=== PATIENT | male | born 1980 | race Caucasian/White ===

== ENCOUNTER 2017-01-21 03:13 | Emergency (ER) | payer MEDICAID, OTHER ==
[~2017-01-21 03:13] MED LIST: ENZYCAP PO; LORTA5 PO; OMEP20TA PO; OXYBXL10 PO; PERC5TAB12 PO; PROM25TA5 PO; ZOFR4TAB3 SL
[2017-01-21 03:20] VITALS: BP 137/73; PULSE 99; RESP 18; TEMP 98.8; O2SAT 98
[2017-01-21] MEDS ORDERED: SODIUM CHLOR 0.9% 1000 ML INJ 1,000 ML IV SCH (03:23)
--- NOTE | 2017-01-21 03:28 | PD ---
HPI Chief Complaint: Abdominal Pain Time Seen by Provider: 03:23 Travel History International Travel<30 days: No Contact w/Intl Traveler<30days: No Traveled to known affect area: No History of Present Illness HPI The patient is a 36-year-old male who presents emergency department for abdominal pain. The patient states he developed epigastric abdominal pain earlier today after eating pork for dinner. The pain is located in epigastrium , nonradiating, sharp and burning, and associated with nausea and vomiting. The patient has a history of similar pain in the past secondary to pancreatitis , states he has a history of chronic pancreatitis with previous endoscopy, ERCP , stent placement. The patient denies any history of gallstones, biliary colic , or chronic alcohol abuse. 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 He has not had a problem and over 1 year. He denies any alcohol ingestion earlier tonight. He denies any lower abdominal pain, dysuria, frequency, or urgency. Symptoms are moderate without any alleviating or exacerbating factors. PFSH Past Medical History Arthritis: No Asthma: No Autoimmune Disease: No Blood Disorders: No Anxiety: No Depression: No Heart Rhythm Problems: No Cancer: No Cardiovascular Problems: No High Cholesterol: No Chemotherapy: No Chest Pain: No Congestive Heart Failure: No COPD: No Cerebrovascular Accident: No Diabetes: No Diminished Hearing: No Endocrine: Yes (PANCREATIC CYST) Gastrointestinal Disorders: Yes (CONSTANT NAUSEA) GERD: No Glaucoma: No Genitourinary: No Hepatitis: No Hiatal Hernia: No Immune Disorder: No Kidney Stones: No Musculoskeletal: No Neurologic: No Psychiatric: No Reproductive: No Respiratory: No Immunizations Current: Yes Migraines: No Pancreatitis: Yes Radiation Therapy: No Renal Failure: No Seizures: No Sickle Cell Disease: No Sleep Apnea: No Thyroid Disease: No Ulcer: No Tetanus Vaccination: < 5 Years Influenza Vaccination: No PNEUMOCCOCAL Vaccine (Year): 2 Past Surgical History Abdominal Surgery: Yes (PANCREATIC DUCT INCISION - ERCP X3/ STENT REMOVED FROM PANCREAS) AICD: No Arteriovenous Shunt: No Cardiac Surgery: No Ear Surgery: No Endocrine Surgery: No Eye Surgery: No Genitourinary Surgery: No Gynecologic Surgery: No Insulin Pump: No Joint Replacement: No Neurologic Surgery: No Oral Surgery: No Pacemaker: No Thoracic Surgery: No Other Surgery: Yes Social History Alcohol Use: No Tobacco Use: Yes (1/2 PPD) 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 Compazine (Verified Allergy, Severe, RESTLESSNESS, 01/21/17) Tramadol (Verified Allergy, Unknown, Cramping, 01/21/17) Toradol (Verified Adverse Reaction, Severe, JITTERS, 01/21/17) Reported Meds & Prescriptions Reported Meds & Active Scripts Active No Active Prescriptions or Reported Medications Review of Systems General / Constitutional: No: Fever Cardiovascular: No: Chest Pain or Discomfort Respiratory: No: Shortness of Breath Gastrointestinal: Positive: Nausea, Vomiting, Abdominal Pain, No: Diarrhea, Constipation, Changes in Bowel Habits Genitourinary: No: Dysuria Skin: Positive Rash (patient has bug bites on the upper extremities bilateral secondary to working in the yard per his report) Physical Exam Narrative GENERAL: Awake, alert, nontoxic-appearing 36-year-old male appears his stated age and appears in mild discomfort. SKIN: Focused skin assessment warm/dry. Patient has multiple circular slightly elevated lesions on the arms bilateral with mild excoriation. HEAD: Atraumatic. Normocephalic. EYES: Pupils equal and round. No scleral icterus. No injection or drainage. ENT: No nasal bleeding or discharge. Mucous membranes pink and moist. NECK: Trachea midline. No JVD. CARDIOVASCULAR: Regular rate and rhythm. No murmur appreciated. RESPIRATORY: No accessory muscle use. Clear to auscultation. Breath sounds equal bilaterally. GASTROINTESTINAL: Abdomen soft, tender in the epigastrium. Negative Rodas's. Negative McBurney's. MUSCULOSKELETAL: No obvious deformities. No clubbing. No cyanosis. No edema. NEUROLOGICAL: Awake and alert. No obvious cranial nerve deficits. Motor grossly within normal limits. Normal speech. PSYCHIATRIC: Appropriate mood and affect; insight and judgment normal. Data Data Last Documented VS Vital Signs Date Time Temp Pulse Resp B/P Pulse Ox O2 Delivery O2 Flow Rate FiO2 01/21/17 03:20 98.8 99 18 137/73 98 Orders Complete Blood Count With Diff (01/21/17 03:23) Comprehensive Metabolic Panel (01/21/17 03:23) Lipase (01/21/17 03:23) Iv Access Insert/Monitor (01/21/17 03:23) Ecg Monitoring (01/21/17 03:23) Oximetry (01/21/17 03:23) Morphine Inj (Morphine Inj) (01/21/17 03:30) Ondansetron Inj (Zofran Inj) (01/21/17 03:30) Sodium Chlor 0.9% 1000 Ml Inj (Ns 1000 M (01/21/17 03:23) Sodium Chloride 0.9% Flush (Ns Flush) (01/21/17 03:30) Famotidine Inj (Pepcid Inj) (01/21/17 03:30) Labs Laboratory Tests Test 01/21/17 03:30 White Blood Count 10.7 TH/MM3 Red Blood Count 4.16 MIL/MM3 Hemoglobin 12.4 GM/DL Hematocrit 35.5 % Mean Corpuscular Volume 85.3 FL Mean Corpuscular Hemoglobin 29.8 PG Mean Corpuscular Hemoglobin 34.9 % Concent Red Cell Distribution Width 12.5 % Platelet Count 248 TH/MM3 Mean Platelet Volume 8.5 FL Neutrophils (%) (Auto) 88.4 % Lymphocytes (%) (Auto) 5.2 % Monocytes (%) (Auto) 4.8 % Eosinophils (%) (Auto) 1.5 % Basophils (%) (Auto) 0.1 % Neutrophils # (Auto) 9.5 TH/MM3 Lymphocytes # (Auto) 0.6 TH/MM3 Monocytes # (Auto) 0.5 TH/MM3 Eosinophils # (Auto) 0.2 TH/MM3 Basophils # (Auto) 0.0 TH/MM3 CBC Comment DIFF FINAL Differential Comment Sodium Level 139 MEQ/L Potassium Level 3.7 MEQ/L Chloride Level 104 MEQ/L Carbon Dioxide Level 27.4 MEQ/L Anion Gap 8 MEQ/L Blood Urea Nitrogen 8 MG/DL Creatinine 1.13 MG/DL Estimat Glomerular Filtration 74 ML/MIN Rate Random Glucose 120 MG/DL Calcium Level 8.9 MG/DL Total Bilirubin 0.4 MG/DL Aspartate Amino Transf 26 U/L (AST/SGOT) Alanine Aminotransferase 33 U/L (ALT/SGPT) Alkaline Phosphatase 115 U/L Total Protein 7.0 GM/DL Albumin 3.5 GM/DL Lipase 160 U/L MDM Medical Decision Making Medical Screen Exam Complete: Yes Emergency Medical Condition: Yes Medical Record Reviewed: Yes Interpretation(s) Laboratory Tests Test 01/21/17 03:30 White Blood Count 10.7 TH/MM3 Red Blood Count 4.16 MIL/MM3 Hemoglobin 12.4 GM/DL Hematocrit 35.5 % Mean Corpuscular Volume 85.3 FL Mean Corpuscular Hemoglobin 29.8 PG Mean Corpuscular Hemoglobin 34.9 % Concent Red Cell Distribution Width 12.5 % Platelet Count 248 TH/MM3 Mean Platelet Volume 8.5 FL Neutrophils (%) (Auto) 88.4 % Lymphocytes (%) (Auto) 5.2 % Monocytes (%) (Auto) 4.8 % Eosinophils (%) (Auto) 1.5 % Basophils (%) (Auto) 0.1 % Neutrophils # (Auto) 9.5 TH/MM3 Lymphocytes # (Auto) 0.6 TH/MM3 Monocytes # (Auto) 0.5 TH/MM3 Eosinophils # (Auto) 0.2 TH/MM3 Basophils # (Auto) 0.0 TH/MM3 CBC Comment DIFF FINAL Differential Comment Sodium Level 139 MEQ/L Potassium Level 3.7 MEQ/L Chloride Level 104 MEQ/L Carbon Dioxide Level 27.4 MEQ/L Anion Gap 8 MEQ/L Blood Urea Nitrogen 8 MG/DL Creatinine 1.13 MG/DL Estimat Glomerular Filtration 74 ML/MIN Rate Random Glucose 120 MG/DL Calcium Level 8.9 MG/DL Total Bilirubin 0.4 MG/DL Aspartate Amino Transf 26 U/L (AST/SGOT) Alanine Aminotransferase 33 U/L (ALT/SGPT) Alkaline Phosphatase 115 U/L Total Protein 7.0 GM/DL Albumin 3.5 GM/DL Lipase 160 U/L Differential Diagnosis Differential diagnoses includes pancreatitis, gastritis, peptic ulcer disease, biliary colic, choledocholithiasis, nephrolithiasis, chronic pain. Narrative Course IV was established, labs are drawn and sent, and the patient was placed on cardiac telemetry monitoring and continuous pulse oximetry monitoring. The patient received morphine, Zofran, and IV fluids. Lipase level was sent to lab. The patient's labs are unremarkable. Lipase is normal. LFTs are normal. White count is normal. The patient is afebrile. The patient was reevaluated at 4:40 AM, his pain had improved it was down to 4/10. Therefore, patient was administered another dose of pain medication. There is no evidence of obstruction of the biliary duct, lipase and LFTs are unremarkable, he will be discharged home on Zofran and pain medication, is advised to follow-up with his primary physician and/or dispenser operator. Diagnosis Primary Impression: Abdominal pain Qualified Code: R10.13 - Epigastric pain Additional Impression: Chronic pancreatitis Qualified Code: K86.1 - Chronic pancreatitis, unspecified pancreatitis type Patient Instructions: General Instructions Additional Instructions: Medications as directed. Follow-up with your primary physician and/or dispenser operator. Return if symptoms worsen or progress. Med/Other Pt SpecificInfo: Prescription(s) given Scripts Hydrocodone-Acetaminophen ([place])5-325 mg Tab1 Tab PO Q6H PRN (PAIN) #15 TAB Ref 0 Prov:Diego Rodgers MD 01/21/17 Ondansetron Odt (Zofran Odt)4 Mg Tab4 Mg SL Q6HR PRN (Nausea/Vomiting) #7 TAB Ref 0 Prov:Diego Rodgers MD 01/21/17 Disposition: DISCHARGE HOME Condition: Stable Diego Rodgers MD Jan 21, 2017 03:28
[2017-01-21] MEDS ORDERED: ONDANSETRON HCL 4 MG/2 ML VIAL IVP ONE (03:30)
[2017-01-21] MEDS ORDERED: FAMOTIDINE 20 MG/2 ML VIAL IV PUSH ONE (03:30)
[2017-01-21] MEDS ORDERED: SODIUM CHLORIDE 0.9% FLUSH 10 ML FLUSH IV FLUSH PRN (03:30)
[2017-01-21] MEDS ORDERED: MORPHINE SULFATE 4 MG/ML INJ IV PUSH ONE ×2 (03:30→04:45)
[2017-01-21 03:42] LABS: AUTOMATED NEUTROPHIL # 9.5 TH/MM3 (1.8-7.7); BASOPHIL % 0.1 % (0.0-2.0); EOSINOPHIL # 0.2 TH/MM3 (0-0.4); EOSINOPHIL % 1.5 % (0.0-4.0); HEMATOCRIT 35.5 % (39.0-51.0); HEMO FLAGS DIFF FINAL; LYMPH % 5.2 % (9.0-44.0); LYMPHOCYTE # 0.6 TH/MM3 (1.0-4.8); MEAN CELL VOLUME 85.3 FL (80.0-100.0); MEAN CORPUSCULAR HEMOGLOBIN 29.8 PG (27.0-34.0); MEAN CORPUSCULAR HGB CONC 34.9 % (32.0-36.0); MONO % 4.8 % (0.0-8.0); NEUT % 88.4 % (16.0-70.0); PLATELET COUNT 248 TH/MM3 (150-450); RED BLOOD COUNT 4.16 MIL/MM3 (4.50-5.90); RED CELL DISTRIBUTION WIDTH 12.5 % (11.6-17.2); WHITE BLOOD COUNT 10.7 TH/MM3 (4.0-11.0)
[2017-01-21 04:07] LABS: ALKALINE PHOSPHATASE 115 U/L (45-117); TOTAL BILIRUBIN ADULT 0.4 MG/DL (0.2-1.0)
[2017-01-21 04:40] LABS: ALT (GPT) 33 U/L (12-78); ANION GAP 8 MEQ/L (5-15); AST (GOT) 26 U/L (15-37); BICARBONATE 27.4 MEQ/L (21.0-32.0); BLOOD UREA NITROGEN 8 MG/DL (7-18); CHLORIDE 104 MEQ/L (98-107); GLOMERULAR FILTRATION RATE 74 ML/MIN (>89); POTASSIUM 3.7 MEQ/L (3.5-5.1); SODIUM (NA) 139 MEQ/L (136-145)
[2017-01-21] MEDS ORDERED: NORC5TAB PO (04:45)
[2017-01-21] MEDS ORDERED: ZOFR4TAB3 SL (04:45)
== END 2017-01-21 06:25 | disposition home or self-care (01) ==
LOC: NEPE 03:13
DX: R10.13 Epigastric pain (principal); K86.1 Other chronic pancreatitis
CPT/HCPCS: 80053; 83690; 85025; 96374; 96375; 96376; 99284; J2270; J2405; J7030

== ENCOUNTER 2017-03-25 14:05 | Emergency (ER) | payer MEDICAID ==
[~2017-03-25 14:05] MED LIST changes: -ENZYCAP PO; -LORTA5 PO; +NORC5TAB PO; -OMEP20TA PO; -OXYBXL10 PO; -PERC5TAB12 PO; -PROM25TA5 PO
[2017-03-25 14:08] VITALS: BP 161/59; PULSE 84; RESP 16; TEMP 98.2; O2SAT 98
--- NOTE | 2017-03-25 14:21 | PD ---
Physical Exam Date Seen by Provider: Mar 25, 2017 Time Seen by Provider: 14:19 Narrative Pt presents with c/o groin pain and back pain. Per patients girlfriend he has a kidney tumor. Pt states the pain has been ongoing for 1 week. Pt c/o dysuria. VSS awaiting bed placement. Pt appears drowsy. Data Data Last Documented VS Vital Signs Date Time Temp Pulse Resp B/P (MAP) Pulse Ox O2 Delivery O2 Flow Rate FiO2 03/25/17 14:08 98.2 84 16 161/59 (93) 98 MDM Supervised Visit with NATHALIA: Taina Correia Mar 25, 2017 14:21
--- NOTE | 2017-03-25 14:36 | PD ---
HPI . here for surgery Chief Complaint: Complaint Time Seen by Provider: 14:25 Travel History International Travel<30 days: No Contact w/Intl Traveler<30days: No Traveled to known affect area: No History of Present Illness HPI 36 yr old male with history of kidney mass here. He is on the exam table crying. His significant other is doing all the talking. She tells me he is here wanting surgery on his kidney mass that was dx 3 years ago. She said he had a MRI done in the hospital at another facility and was told he would need outpatient f/u. He was hoping to have surgery there and was told his case was not urgent. He is here wanting surgery. She tells me that he saw his PCP and was not given a referral to urology. PFSH Past Medical History Arthritis: No Asthma: No Autoimmune Disease: No Blood Disorders: No Anxiety: No Depression: No Heart Rhythm Problems: No Cancer: No Cardiovascular Problems: No High Cholesterol: No Chemotherapy: No Chest Pain: No Congestive Heart Failure: No COPD: No Cerebrovascular Accident: No Diabetes: No Diminished Hearing: No Endocrine: Yes (PANCREATIC CYST) Gastrointestinal Disorders: Yes (CONSTANT NAUSEA) GERD: No Glaucoma: No Genitourinary: No Hepatitis: No Hiatal Hernia: No Immune Disorder: No Kidney Stones: No Musculoskeletal: No Neurologic: No Psychiatric: No Reproductive: No Respiratory: No Immunizations Current: Yes Migraines: No Pancreatitis: Yes Radiation Therapy: No Renal Failure: No Seizures: No Sickle Cell Disease: No Sleep Apnea: No Thyroid Disease: No Ulcer: No PNEUMOCCOCAL Vaccine (Year): 2 Past Surgical History Abdominal Surgery: Yes (PANCREATIC DUCT INCISION - ERCP X3/ STENT REMOVED FROM PANCREAS) AICD: No Arteriovenous Shunt: No Cardiac Surgery: No Ear Surgery: No Endocrine Surgery: No Eye Surgery: No Genitourinary Surgery: No Gynecologic Surgery: No Insulin Pump: No Joint Replacement: No Neurologic Surgery: No Oral Surgery: No Pacemaker: No Thoracic Surgery: No Other Surgery: Yes Social History Alcohol Use: No Tobacco Use: Yes (1/2 PPD) Substance Use: No (HX DRUG ABUSE) Allergies-Medications (Allergen,Severity, Reaction): Coded Allergies: codeine (Unverified Allergy, Severe, UPSET STOMACH, RASH, 03/12/17) 11/30/04: PT TAKES LORTAB AT HOME W/O ADVERSE EFFECT, PT STS CAN NOT TAKE STRAIGHT CODEINE. dicyclomine (Unverified Allergy, Severe, HIVES, 03/12/17) prochlorperazine (Unverified Allergy, Severe, RESTLESSNESS, 03/12/17) tramadol (Unverified Allergy, Unknown, Cramping, 03/12/17) ketorolac (Unverified Adverse Reaction, Severe, JITTERS, 03/12/17) Reported Meds & Prescriptions Reported Meds & Active Scripts Active [place] (Hydrocodone-Acetaminophen) 5-325 mg Tab 1 Tab PO Q6H PRN Zofran Odt (Ondansetron Odt) 4 Mg Tab 4 Mg SL Q6HR PRN Review of Systems General / Constitutional: No: Fever Eyes: No: Visual changes HENT: No: Headaches Cardiovascular: No: Chest Pain or Discomfort Respiratory: No: Shortness of Breath Gastrointestinal: No: Abdominal Pain Genitourinary: No: Dysuria Musculoskeletal: Positive: Pain (back pain ) Skin: No Rash Neurologic: No: Weakness Psychiatric: No: Depression Endocrine: No: Polydipsia Hematologic/Lymphatic: No: Easy Bruising Physical Exam Narrative patient did not allow exam; he left the exam room Data Data Last Documented VS Vital Signs Date Time Temp Pulse Resp B/P (MAP) Pulse Ox O2 Delivery O2 Flow Rate FiO2 03/25/17 14:08 98.2 84 16 161/59 (93) 98 MDM Medical Decision Making Medical Screen Exam Complete: Yes Emergency Medical Condition: Yes Medical Record Reviewed: Yes Differential Diagnosis kidney mass, UTI, nephrolithiasis Narrative Course 36 yr old male here with multiple complaints. He has not spoken a word to me. His significant other has given me a list with a multitude of complaints. I discussed with them that we do not operate in the ER and will provide a workup and go from there. Patient got up and walked out of the exam room. Diagnosis Primary Impression: Left against medical advice Patient Instructions: General Instructions Disposition: 07 AGAINST MEDICAL ADVICE Condition: Stable Nemo Hyatt Mar 25, 2017 14:35
[2017-04-10] MEDS ORDERED: LEVO500T8 PO (14:01)
[2017-04-10] MEDS ORDERED: HYDR-3580 PO (14:03)
== END 2017-03-25 14:32 | disposition left against medical advice (07) ==
LOC: NEPD 14:05
DX: N28.89 Other specified disorders of kidney and ureter (principal)
CPT/HCPCS: 99281

== ENCOUNTER 2017-04-05 04:34 | Emergency (ER) | payer MEDICAID ==
[2017-04-05 04:37] VITALS: BP 165/99; PULSE 105; RESP 16; TEMP 99; O2SAT 98
--- NOTE | 2017-04-05 05:05 | PD ---
HPI Chief Complaint: Pain: Acute or Chronic Time Seen by Provider: 05:05 Travel History International Travel<30 days: No Contact w/Intl Traveler<30days: No Traveled to known affect area: No History of Present Illness HPI 36-year-old male came to the emergency room with history of abdominal pain. Patient has been in this emergency room and other ERs multiple times as per his own admission for abdominal pain. He was in [facility] emergency room less than 2 weeks ago for abdominal pain and at that time a CT scan was done which showed a mass in his kidney. Patient says about 2 years ago he was told about a smaller mass in his kidney which seems like it might have grown in size. He was out of town for past 22 months. He has just returned. His primary care has arranged for a follow-up with a urologist that he is supposed to see. He was slightly tachycardic upon arrival. No history of vomiting or diarrhea. PFSH Past Medical History Narrative Medical List of his past medical, surgical, social and family history as reviewed from the nursing note. Arthritis: No Asthma: No Autoimmune Disease: No Blood Disorders: No Anxiety: No Depression: No Heart Rhythm Problems: No Cancer: No Cardiovascular Problems: No High Cholesterol: No Chemotherapy: No Chest Pain: No Congestive Heart Failure: No COPD: No Cerebrovascular Accident: No Diabetes: No Diminished Hearing: No Endocrine: Yes (PANCREATIC CYST) Gastrointestinal Disorders: Yes ( NAUSEA) GERD: No Glaucoma: No Genitourinary: No Hepatitis: No Hiatal Hernia: No Immune Disorder: No Kidney Stones: No Musculoskeletal: No Neurologic: No Psychiatric: No Reproductive: No Respiratory: No Immunizations Current: Yes Migraines: No Pancreatitis: Yes Radiation Therapy: No Renal Failure: No Seizures: No Sickle Cell Disease: No Sleep Apnea: No Thyroid Disease: No Ulcer: No PNEUMOCCOCAL Vaccine (Year): 2 Past Surgical History Abdominal Surgery: Yes (PANCREATIC DUCT INCISION - ERCP X3/ STENT REMOVED FROM PANCREAS) AICD: No Arteriovenous Shunt: No Cardiac Surgery: No Ear Surgery: No Endocrine Surgery: No Eye Surgery: No Genitourinary Surgery: No Gynecologic Surgery: No Insulin Pump: No Joint Replacement: No Neurologic Surgery: No Oral Surgery: No Pacemaker: No Thoracic Surgery: No Other Surgery: Yes Social History Alcohol Use: No Tobacco Use: Yes (1/2 PPD) Substance Use: No (HX DRUG ABUSE) Allergies-Medications (Allergen,Severity, Reaction): Coded Allergies: codeine (Verified Allergy, Severe, UPSET STOMACH, RASH, 04/10/17) 11/30/04: PT TAKES LORTAB AT HOME W/O ADVERSE EFFECT, PT STS CAN NOT TAKE STRAIGHT CODEINE. dicyclomine (Verified Allergy, Severe, HIVES, 04/10/17) prochlorperazine (Verified Allergy, Severe, RESTLESSNESS, 04/10/17) tramadol (Verified Allergy, Unknown, Cramping, 04/10/17) ketorolac (Verified Adverse Reaction, Severe, JITTERS, 04/10/17) Comments List of his allergies reviewed from the nursing note. Reported Meds & Prescriptions Reported Meds & Active Scripts Active Hydrocodone-Acetaminophen 7.5-325 mg Tab 1 Tab PO Q6H PRN Levofloxacin 500 Mg Tablet 500 Mg PO DAILY Narrative Medication List of his home medications reviewed from the nursing note. Review of Systems Except as stated in HPI: all other systems reviewed are Neg Physical Exam Narrative GENERAL: Awake, alert, no obvious distress SKIN: Focused skin assessment warm/dry. HEAD: Atraumatic. Normocephalic. EYES: Pupils equal and round. No scleral icterus. No injection or drainage. ENT: No nasal bleeding or discharge. Mucous membranes pink and moist. NECK: Trachea midline. No JVD. CARDIOVASCULAR: Regular rate and rhythm. No murmur appreciated. RESPIRATORY: No accessory muscle use. Clear to auscultation. Breath sounds equal bilaterally. GASTROINTESTINAL: Abdomen soft, non-tender, nondistended. Hepatic and splenic margins not palpable. MUSCULOSKELETAL: No obvious deformities. No clubbing. No cyanosis. No edema. NEUROLOGICAL: Awake and alert. No obvious cranial nerve deficits. Motor grossly within normal limits. Normal speech. PSYCHIATRIC: Appropriate mood and affect; insight and judgment normal. Data Data Last Documented VS Orders Orders Complete Blood Count With Diff (04/05/17 05:23) Comprehensive Metabolic Panel (04/05/17 05:23) Lactic Acid (04/05/17 05:23) Iv Access Insert/Monitor (04/05/17 05:23) Ecg Monitoring (04/05/17 05:23) Oximetry (04/05/17 05:23) Sodium Chloride 0.9% Flush (Ns Flush) (04/05/17 05:30) Ondansetron Inj (Zofran Inj) (04/05/17 05:30) Acetamin-Hydrocod 325-5 Mg ([place] 5-325 (04/05/17 05:30) Labs Laboratory Tests Test 04/05/17 05:30 White Blood Count 13.9 TH/MM3 Red Blood Count 4.86 MIL/MM3 Hemoglobin 13.2 GM/DL Hematocrit 40.5 % Mean Corpuscular Volume 83.4 FL Mean Corpuscular Hemoglobin 27.2 PG Mean Corpuscular Hemoglobin Concent 32.7 % Red Cell Distribution Width 13.0 % Platelet Count 274 TH/MM3 Mean Platelet Volume 7.3 FL Neutrophils (%) (Auto) 82.3 % Lymphocytes (%) (Auto) 9.6 % Monocytes (%) (Auto) 5.7 % Eosinophils (%) (Auto) 2.0 % Basophils (%) (Auto) 0.4 % Neutrophils # (Auto) 11.4 TH/MM3 Lymphocytes # (Auto) 1.3 TH/MM3 Monocytes # (Auto) 0.8 TH/MM3 Eosinophils # (Auto) 0.3 TH/MM3 Basophils # (Auto) 0.1 TH/MM3 CBC Comment DIFF FINAL Differential Comment Blood Urea Nitrogen 15 MG/DL Creatinine 1.18 MG/DL Random Glucose 129 MG/DL Total Protein 7.5 GM/DL Albumin 3.7 GM/DL Calcium Level 8.9 MG/DL Alkaline Phosphatase 118 U/L Aspartate Amino Transf (AST/SGOT) 35 U/L Alanine Aminotransferase (ALT/SGPT) 69 U/L Total Bilirubin 0.1 MG/DL Sodium Level 136 MEQ/L Potassium Level 3.8 MEQ/L Chloride Level 102 MEQ/L Carbon Dioxide Level 28.2 MEQ/L Anion Gap 6 MEQ/L Estimat Glomerular Filtration Rate 71 ML/MIN Lactic Acid Level 1.9 mmol/L MDM Medical Decision Making Medical Screen Exam Complete: Yes Emergency Medical Condition: Yes Medical Record Reviewed: Yes Differential Diagnosis Acute on chronic pancreatitis, chronic abdominal pain, pain med seeking Narrative Course 6:15 AM blood test results of back and within acceptable limits. Patient had a CAT scan for the risk of radiation exposure. Patient will be discharged home. Procedures EKG Prior to Arrival: No Diagnosis Primary Impression: Chronic abdominal pain Referrals: Primary Care Physician Additional Instructions: Follow-up with your primary care and your urologist. Disposition: 01 DISCHARGE HOME Condition: Stable Gerber Meza MD Apr 05, 2017 05:05
[2017-04-05] MEDS ORDERED: ONDANSETRON HCL 4 MG/2 ML VIAL IV PUSH ONE (05:30)
[2017-04-05] MEDS ORDERED: ACETAMINOPHEN/HYDROcodone 325 MG/5 MG TAB PO ONE (05:30)
[2017-04-05] MEDS ORDERED: SODIUM CHLORIDE 0.9% FLUSH 10 ML FLUSH IV FLUSH PRN (05:30)
[2017-04-05 05:46] LABS: AUTOMATED NEUTROPHIL # 11.4 TH/MM3 (1.8-7.7); BASOPHIL # 0.1 TH/MM3 (0-0.2); BASOPHIL % 0.4 % (0.0-2.0); EOSINOPHIL # 0.3 TH/MM3 (0-0.4); HEMATOCRIT 40.5 % (39.0-51.0); HEMO FLAGS DIFF FINAL; LYMPH % 9.6 % (9.0-44.0); LYMPHOCYTE # 1.3 TH/MM3 (1.0-4.8); MEAN CELL VOLUME 83.4 FL (80.0-100.0); MEAN CORPUSCULAR HEMOGLOBIN 27.2 PG (27.0-34.0); MEAN CORPUSCULAR HGB CONC 32.7 % (32.0-36.0); MONO % 5.7 % (0.0-8.0); NEUT % 82.3 % (16.0-70.0); PLATELET COUNT 274 TH/MM3 (150-450); RED BLOOD COUNT 4.86 MIL/MM3 (4.50-5.90); WHITE BLOOD COUNT 13.9 TH/MM3 (4.0-11.0)
[2017-04-05 06:09] LABS: ALKALINE PHOSPHATASE 118 U/L (45-117); TOTAL BILIRUBIN ADULT 0.1 MG/DL (0.2-1.0)
[2017-04-05 06:13] LABS: ALT (GPT) 69 U/L (12-78); ANION GAP 6 MEQ/L (5-15); AST (GOT) 35 U/L (15-37); BICARBONATE 28.2 MEQ/L (21.0-32.0); BLOOD UREA NITROGEN 15 MG/DL (7-18); CHLORIDE 102 MEQ/L (98-107); GLOMERULAR FILTRATION RATE 71 ML/MIN (>89); POTASSIUM 3.8 MEQ/L (3.5-5.1); SODIUM (NA) 136 MEQ/L (136-145)
[2017-04-10] MEDS ORDERED: LEVO500T8 PO (14:01)
[2017-04-10] MEDS ORDERED: HYDR-3580 PO (14:03)
== END 2017-04-05 07:15 | disposition home or self-care (01) ==
LOC: NEPE 04:34
DX: R10.9 Unspecified abdominal pain (principal); G89.29 Other chronic pain; F17.200 Nicotine dependence, unspecified, uncomplicated
CPT/HCPCS: 80053; 83605; 85025; 96374; 99284; J2405

== ENCOUNTER 2017-05-22 16:05 | Emergency (ER) | payer MEDICAID ==
[~2017-05-22] VITALS: Ht 182.9 cm; Wt 100.0 kg
[~2017-05-22 16:05] MED LIST changes: +HYDR-3580 PO; +LEVO500T8 PO; -NORC5TAB PO; -ZOFR4TAB3 SL
[2017-05-22 16:07] VITALS: BP 141/91; PULSE 85; RESP 20; TEMP 97.9; O2SAT 100
[2017-05-22] MEDS ORDERED: SODIUM CHLOR 0.9% 1000 ML INJ 1,000 ML IV SCH (16:21)
[2017-05-22] MEDS ORDERED: ACETAMINOPHEN/HYDROcodone 325 MG/5 MG TAB PO ONE (16:30)
[2017-05-22] MEDS ORDERED: SODIUM CHLORIDE 0.9% FLUSH 10 ML FLUSH IV FLUSH PRN (16:30)
[2017-05-22] MEDS ORDERED: ONDANSETRON HCL 4 MG/2 ML VIAL IVP ONE (16:30)
--- NOTE | 2017-05-22 16:31 | PD ---
HPI Chief Complaint: Abdominal Pain Time Seen by Provider: 16:21 Travel History International Travel<30 days: No Contact w/Intl Traveler<30days: No Traveled to known affect area: No History of Present Illness HPI Patient comes emergency Department complaining of epigastric pain ongoing for 4 days without radiation. Patient reports feels similar to his previous issues with pancreatitis. Patient reports associated nausea, vomiting, and occasional loose stool. Denies any blood or darkening of stool. Reports vomiting is nonbilious and nonbloody. Patient denies doing anything for this. Denies any radiation of the pain. Denies any chest pain, shortness of breath, fevers, back pain, or headaches. Patient has a history of pancreatitis and renal mass that he see urology for and is having surgery scheduled once he gets clearance from hooker on. Patient reports he is waiting to get in with a specialist at [facility] secondary to his pancreatitis. PFSH Past Medical History Arthritis: No Asthma: No Autoimmune Disease: No Blood Disorders: No Anxiety: No Depression: No Heart Rhythm Problems: No Cancer: No Cardiovascular Problems: No High Cholesterol: No Chemotherapy: No Chest Pain: No Congestive Heart Failure: No COPD: No Cerebrovascular Accident: No Diabetes: No Diminished Hearing: No Endocrine: Yes (PANCREATIC CYST) Gastrointestinal Disorders: Yes ( NAUSEA) GERD: No Glaucoma: No Genitourinary: No Hepatitis: No Hiatal Hernia: No Immune Disorder: No Kidney Stones: No Musculoskeletal: No Neurologic: No Psychiatric: No Reproductive: No Respiratory: No Immunizations Current: Yes Migraines: No Pancreatitis: Yes Radiation Therapy: No Renal Failure: No Seizures: No Sickle Cell Disease: No Sleep Apnea: No Thyroid Disease: No Ulcer: No PNEUMOCCOCAL Vaccine (Year): 2 Past Surgical History Abdominal Surgery: Yes (PANCREATIC DUCT INCISION - ERCP X3/ STENT REMOVED FROM PANCREAS) AICD: No Arteriovenous Shunt: No Cardiac Surgery: No Ear Surgery: No Endocrine Surgery: No Eye Surgery: No Genitourinary Surgery: No Gynecologic Surgery: No Insulin Pump: No Joint Replacement: No Neurologic Surgery: No Oral Surgery: No Pacemaker: No Thoracic Surgery: No Other Surgery: Yes Social History Alcohol Use: No Tobacco Use: Yes (/2 PPD) 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 dicyclomine (Verified Allergy, Severe, HIVES, 05/22/17) prochlorperazine (Verified Allergy, Severe, RESTLESSNESS, 05/22/17) tramadol (Verified Allergy, Unknown, Cramping, 05/22/17) ketorolac (Verified Adverse Reaction, Severe, JITTERS, 05/22/17) Reported Meds & Prescriptions Reported Meds & Active Scripts Active No Active Prescriptions or Reported Medications Review of Systems Except as stated in HPI: all other systems reviewed are Neg Physical Exam Narrative GENERAL: Well-developed, well nourished, in no acute distress, and non-ill appearing. SKIN: Focused skin assessment warm and dry. HEAD: Atraumatic. Normocephalic. EYES: Pupils equal and round. EOMI. No scleral icterus. No injection or drainage. ENT: No nasal bleeding or discharge. Mucous membranes pink and moist. NECK: Trachea midline. Supple. No nuclear rigidity. CARDIOVASCULAR: Regular rate and rhythm. No murmur appreciated. RESPIRATORY: No accessory muscle use. No respiratory distress. Clear to auscultation. Breath sounds equal bilaterally. GASTROINTESTINAL: Abdomen soft, nondistended, and no guarding. Hepatic and splenic margins not palpable. Normal bowel sounds 4. No pulsatile mass. Patient reports tenderness to palpation epigastric area. MUSCULOSKELETAL: No obvious deformities. No clubbing. No cyanosis. No edema. Full range of motion. NEUROLOGICAL: Awake and alert. No obvious cranial nerve deficits. Motor grossly within normal limits. Normal speech. PSYCHIATRIC: Appropriate mood and affect; insight and judgment normal. Data Data Last Documented VS Vital Signs Date Time Temp Pulse Resp B/P (MAP) Pulse Ox O2 Delivery O2 Flow Rate FiO2 05/22/17 18:23 05/22/17 17:03 97 Room Air 05/22/17 16:07 97.9 85 20 Orders Orders Complete Blood Count With Diff (05/22/17 16:21) Comprehensive Metabolic Panel (05/22/17 16:21) Lipase (05/22/17 16:21) Iv Access Insert/Monitor (05/22/17 16:21) Ecg Monitoring (05/22/17 16:21) Oximetry (05/22/17 16:21) Ondansetron Inj (Zofran Inj) (05/22/17 16:30) Sodium Chlor 0.9% 1000 Ml Inj (Ns 1000 M (05/22/17 16:21) Sodium Chloride 0.9% Flush (Ns Flush) (05/22/17 16:30) Acetamin-Hydrocod 325-5 Mg ([place] 5-325 (05/22/17 16:30) Ondansetron Odt (Zofran Odt) (05/22/17 17:00) Vascular Access Team Consult/P PRN (05/22/17 17:00) Vascular Poc Ultrasound (05/22/17 ) Sodium Chlor 0.9% 1000 Ml Inj (Ns 1000 M (05/22/17 17:15) Ondansetron Inj (Zofran Inj) (05/22/17 18:15) Ed Discharge Order (05/22/17 18:05) Labs Laboratory Tests Test 05/22/17 17:00 White Blood Count 9.7 TH/MM3 Red Blood Count 5.39 MIL/MM3 Hemoglobin 15.0 GM/DL Hematocrit 44.4 % Mean Corpuscular Volume 82.3 FL Mean Corpuscular Hemoglobin 27.8 PG Mean Corpuscular Hemoglobin Concent 33.8 % Red Cell Distribution Width 13.8 % Platelet Count 231 TH/MM3 Mean Platelet Volume 8.0 FL Neutrophils (%) (Auto) 75.6 % Lymphocytes (%) (Auto) 17.2 % Monocytes (%) (Auto) 6.0 % Eosinophils (%) (Auto) 0.7 % Basophils (%) (Auto) 0.5 % Neutrophils # (Auto) 7.3 TH/MM3 Lymphocytes # (Auto) 1.7 TH/MM3 Monocytes # (Auto) 0.6 TH/MM3 Eosinophils # (Auto) 0.1 TH/MM3 Basophils # (Auto) 0.1 TH/MM3 CBC Comment DIFF FINAL Differential Comment Blood Urea Nitrogen 9 MG/DL Creatinine 1.26 MG/DL Random Glucose 97 MG/DL Total Protein 7.6 GM/DL Albumin 4.3 GM/DL Calcium Level 9.2 MG/DL Alkaline Phosphatase 88 U/L Aspartate Amino Transf (AST/SGOT) 16 U/L Alanine Aminotransferase (ALT/SGPT) 28 U/L Total Bilirubin 0.4 MG/DL Sodium Level 141 MEQ/L Potassium Level 3.6 MEQ/L Chloride Level 109 MEQ/L Carbon Dioxide Level 23.8 MEQ/L Anion Gap 8 MEQ/L Estimat Glomerular Filtration Rate 66 ML/MIN Lipase 156 U/L MDM Medical Decision Making Medical Screen Exam Complete: Yes Emergency Medical Condition: Yes Differential Diagnosis Pancreatitis, chronic abdominal pain, drug-seeking behavior, electrolyte abnormality, dehydration, other Narrative Course The patient presented with upper epigastric abdominal pain. There was no significant history of diarrhea and no fever. The patient appeared comfortable, well hydrated and the abdominal exam was unremarkable and minimal to nontender to me. Laboratory evaluation revealed no significant abnormality. There was no evidence of an acute, surgical abdomen at this time. There was no clinical evidence to support cholecystitis/cholelithiasis, pancreatitis, perforation of gastric ulcer, colitis, diverticulitis, bacterial peritonitis, obstruction, volvulus, early appendicitis, or hernial incarceration or strangulation nor significant GIB at this time. There was no evidence to support vascular pathology such as AAA, mesenteric ischemia. There was also no clinical evidence by history, exam or risk factors to suggest atypical presentation of cardiac disease such as ACS, AMI or atypical angina. No evidence to suggest genitourinary etiology as well. Clinical picture was discussed with the patient , as well as plan of care. The patient was instructed to follow up with their physician. Abdominal pain warnings were discussed with the patient. The patient is to return if worsens, pain worsens or changes, develop fever, inability to tolerate fluids with or without vomiting, unable to establish follow up or as needed. The patient agrees with plan. [place] E-force was reviewed show patient received a three-day supply of hydrocodone of this month. Patient in no obvious distress upon re-evaluation. Patient asking for additional pain medication to go home. When questioning findings noted on E- force, he states that he thought that was 3 days ago. All pertinent laboratory/ Radiology result(s) discussed with patient. Discussed patient with Dr. Nick prior to discharge, who is in agreement with plan of care and disposition. Any questions/concerns in reference to patient diagnosis/ condition discussed and clarified prior to patient's discharge. Reinforced sheer importance of close follow up with patient's primary physician or primary care clinic. Instructed patient to return to ED immediately, if symptoms return/ worsen. Patient showed understanding of above instructions. Further instructions and recommendations were detailed in discharge paperwork. Patient ambulated without difficulty out of ED at discharge. Diagnosis Primary Impression: Chronic abdominal pain Patient Instructions: Chronic Abdominal Pain (GEN), General Instructions Additional Instructions: Follow-up with your primary care physician and/or GI in 3-5 days for reevaluation. Return to the emergency department if symptoms get worse. Scripts No Active Prescriptions or Reported Meds Disposition: 01 DISCHARGE HOME Condition: Stable Arron Salazar May 22, 2017 16:31
[2017-05-22] MEDS ORDERED: ONDANSETRON ODT 4 MG TAB PO ONE (17:00)
[2017-05-22 17:03] VITALS: O2SAT 97
[2017-05-22] MEDS ORDERED: SODIUM CHLOR 0.9% 1000 ML INJ 1,000 ML IV ONE (17:15)
[2017-05-22 17:24] LABS: AUTOMATED NEUTROPHIL # 7.3 TH/MM3 (1.8-7.7); BASOPHIL # 0.1 TH/MM3 (0-0.2); BASOPHIL % 0.5 % (0.0-2.0); EOSINOPHIL # 0.1 TH/MM3 (0-0.4); EOSINOPHIL % 0.7 % (0.0-4.0); HEMATOCRIT 44.4 % (39.0-51.0); LYMPH % 17.2 % (9.0-44.0); LYMPHOCYTE # 1.7 TH/MM3 (1.0-4.8); MEAN CELL VOLUME 82.3 FL (80.0-100.0); MEAN CORPUSCULAR HEMOGLOBIN 27.8 PG (27.0-34.0); MEAN CORPUSCULAR HGB CONC 33.8 % (32.0-36.0); MONOCYTE # 0.6 TH/MM3 (0-0.9); NEUT % 75.6 % (16.0-70.0); PLATELET COUNT 231 TH/MM3 (150-450); RED BLOOD COUNT 5.39 MIL/MM3 (4.50-5.90); RED CELL DISTRIBUTION WIDTH 13.8 % (11.6-17.2); WHITE BLOOD COUNT 9.7 TH/MM3 (4.0-11.0)
[2017-05-22 17:50] LABS: ALBUMIN 4.3 GM/DL (3.4-5.0); ALT (GPT) 28 U/L (12-78); AST (GOT) 16 U/L (15-37); BICARBONATE 23.8 MEQ/L (21.0-32.0); BLOOD UREA NITROGEN 9 MG/DL (7-18); CALCIUM 9.2 MG/DL (8.5-10.1); CHLORIDE 109 MEQ/L (98-107); CREATININE 1.26 MG/DL (0.60-1.30); GLOMERULAR FILTRATION RATE 66 ML/MIN (>89); GLUCOSE,RANDOM 97 MG/DL (74-106); LIPASE 156 U/L (73-393); SODIUM (NA) 141 MEQ/L (136-145)
[2017-05-22 17:53] LABS: ALKALINE PHOSPHATASE 88 U/L (45-117); TOTAL BILIRUBIN ADULT 0.4 MG/DL (0.2-1.0); TOTAL PROTEIN 7.6 GM/DL (6.4-8.2)
[2017-05-22] MEDS ORDERED: ONDANSETRON HCL 4 MG/2 ML VIAL IV PUSH ONE (18:15)
== END 2017-05-22 18:50 | disposition home or self-care (01) ==
LOC: NEPE 16:05
DX: R10.13 Epigastric pain (principal); G89.29 Other chronic pain; R11.2 Nausea with vomiting, unspecified; R19.7 Diarrhea, unspecified; F17.200 Nicotine dependence, unspecified, uncomplicated; Z88.5 Allergy status to narcotic agent; Z88.8 Allergy status to other drugs, medicaments and biological substances; Z87.19 Personal history of other diseases of the digestive system
CPT/HCPCS: 76937; 80053; 83690; 85025; 99284; J7030

== ENCOUNTER 2017-06-08 20:31 | Emergency (ER) | payer MEDICAID ==
[~2017-06-08] VITALS: Ht 182.9 cm; Wt 95.0 kg
[2017-06-08 20:33] VITALS: BP 138/83; PULSE 81; RESP 16; TEMP 98.1; O2SAT 99
--- NOTE | 2017-06-08 21:59 | PD ---
HPI Chief Complaint: Flank/Kidney Pain Time Seen by Provider: 20:58 Travel History International Travel<30 days: No Contact w/Intl Traveler<30days: No Traveled to known affect area: No History of Present Illness HPI This is a 36 year old male who presents to the emergency department with hematuria for 3 nights, intermittent, mild. The patient has a history of a known right kidney tumor which is supposed to be removed in the beginning of June. Pt. called his urologist and told him that he has discoloration of his urine so they told him to come to the emergency department. The patient reports right flank pain, 8/10, constant, not alleviated by anything. Pt. takes ibuprofen but thats not helping. PFSH Past Medical History Narrative Medical chronic pancreatitis Arthritis: No Asthma: No Autoimmune Disease: No Blood Disorders: No Anxiety: No Depression: No Heart Rhythm Problems: No Cancer: Yes (kidney) Cardiovascular Problems: No High Cholesterol: No Chemotherapy: No Chest Pain: No Congestive Heart Failure: No COPD: No Cerebrovascular Accident: No Diabetes: No Diminished Hearing: No Endocrine: Yes (PANCREATIC CYST) Gastrointestinal Disorders: Yes GERD: No Glaucoma: No Genitourinary: No Hepatitis: No Hiatal Hernia: No Immune Disorder: No Kidney Stones: No Musculoskeletal: No Neurologic: No Psychiatric: No Reproductive: No Respiratory: No Immunizations Current: Yes Migraines: No Pancreatitis: Yes Radiation Therapy: No Renal Failure: No Seizures: No Sickle Cell Disease: No Sleep Apnea: No Thyroid Disease: No Ulcer: No Tetanus Vaccination: < 5 Years Influenza Vaccination: No PNEUMOCCOCAL Vaccine (Year): 2 Past Surgical History Abdominal Surgery: Yes (PANCREATIC DUCT INCISION - ERCP X3/ STENT REMOVED FROM PANCREAS) AICD: No Arteriovenous Shunt: No Cardiac Surgery: No Ear Surgery: No Endocrine Surgery: No Eye Surgery: No Genitourinary Surgery: No Gynecologic Surgery: No Insulin Pump: No Joint Replacement: No Neurologic Surgery: No Oral Surgery: No Pacemaker: No Thoracic Surgery: No Other Surgery: Yes Social History Alcohol Use: No Tobacco Use: Yes (1/2 PPD) 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 dicyclomine (Verified Allergy, Severe, HIVES, 06/08/17) prochlorperazine (Verified Allergy, Severe, RESTLESSNESS, 06/08/17) tramadol (Verified Allergy, Unknown, Cramping, 06/08/17) ketorolac (Verified Adverse Reaction, Severe, JITTERS, 06/08/17) Reported Meds & Prescriptions Reported Meds & Active Scripts Active No Active Prescriptions or Reported Medications Review of Systems Except as stated in HPI: all other systems reviewed are Neg Physical Exam Narrative GENERAL:Well appearing, no acute distress SKIN: Focused skin assessment warm and dry. HEAD: Atraumatic. Normocephalic. EYES: Pupils equal and round. No injection or drainage. ENT: Moist mucous membranes NECK: Trachea midline. CARDIOVASCULAR: Regular rate and rhythm. No murmur appreciated. RESPIRATORY: Clear to auscultation. Breath sounds equal bilaterally. GASTROINTESTINAL: Abdomen soft, non-tender, nondistended. : Diffuse tenderness along the right back. MUSCULOSKELETAL: No obvious deformities. NEUROLOGICAL: Awake and alert. No obvious cranial nerve deficits. Moving all extremities. PSYCHIATRIC: Appropriate mood and affect; insight and judgment normal. Data Data Last Documented VS Vital Signs Date Time Temp Pulse Resp B/P (MAP) Pulse Ox O2 Delivery O2 Flow Rate FiO2 06/08/17 20:33 98.1 81 16 138/83 (101) 99 Room Air Orders Orders Urinalysis - C+S If Indicated (06/08/17 21:55) Complete Blood Count With Diff (06/08/17 21:55) Basic Metabolic Panel (Bmp) (06/08/17 21:55) Sodium Chlor 0.9% 1000 Ml Inj (Ns 1000 M (06/08/17 22:15) Acetaminophen (Tylenol) (06/08/17 22:15) Labs Laboratory Tests Test 06/08/17 21:45 06/08/17 22:00 Urine Color YELLOW Urine Turbidity CLEAR Urine pH 6.0 Urine Specific [place] 1.041 Urine Protein TRACE mg/dL Urine Glucose (UA) NEG mg/dL Urine Ketones TRACE mg/dL Urine Occult Blood NEG Urine Nitrite NEG Urine Bilirubin NEG Urine Urobilinogen 2.0 MG/DL Urine Leukocyte Esterase TRACE Urine RBC LESS THAN 1 /hpf Urine WBC LESS THAN 1 /hpf Urine Amorphous Sediment RARE Urine Mucus FEW /lpf Microscopic Urinalysis Comment CULT NOT INDICATED White Blood Count 11.4 TH/MM3 Red Blood Count 5.36 MIL/MM3 Hemoglobin 15.2 GM/DL Hematocrit 44.5 % Mean Corpuscular Volume 83.0 FL Mean Corpuscular Hemoglobin 28.4 PG Mean Corpuscular Hemoglobin Concent 34.1 % Red Cell Distribution Width 14.3 % Platelet Count 278 TH/MM3 Mean Platelet Volume 8.8 FL Neutrophils (%) (Auto) 62.2 % Lymphocytes (%) (Auto) 26.6 % Monocytes (%) (Auto) 7.5 % Eosinophils (%) (Auto) 3.1 % Basophils (%) (Auto) 0.6 % Neutrophils # (Auto) 7.1 TH/MM3 Lymphocytes # (Auto) 3.0 TH/MM3 Monocytes # (Auto) 0.9 TH/MM3 Eosinophils # (Auto) 0.4 TH/MM3 Basophils # (Auto) 0.1 TH/MM3 CBC Comment DIFF FINAL Differential Comment Blood Urea Nitrogen 17 MG/DL Creatinine 1.04 MG/DL Random Glucose 89 MG/DL Calcium Level 9.3 MG/DL Sodium Level 138 MEQ/L Potassium Level 4.4 MEQ/L Chloride Level 105 MEQ/L Carbon Dioxide Level 25.3 MEQ/L Anion Gap 8 MEQ/L Estimat Glomerular Filtration Rate 82 ML/MIN MDM Medical Decision Making Medical Screen Exam Complete: Yes Emergency Medical Condition: Yes Diagnosis Primary Impression: Flank pain Patient Instructions: General Instructions Additional Instructions: If you develop severe or worsening abdominal pain, fever>100.4, persistent vomiting or inability to eat or drink return to the emergency department immediately. Follow up with your primary care physician in 1-2 days for a check-up. Med/Other Pt SpecificInfo: No Change to Meds Scripts No Active Prescriptions or Reported Meds Disposition: 01 DISCHARGE HOME Condition: Stable Geeta Crespo MD Jun 08, 2017 21:59
[2017-06-08] MEDS ORDERED: SODIUM CHLOR 0.9% 1000 ML INJ 1,000 ML IV SCH (22:15)
[2017-06-08] MEDS ORDERED: ACETAMINOPHEN 325 MG TAB PO ONE (22:15)
[2017-06-08 22:18] LABS: AUTOMATED NEUTROPHIL # 7.1 TH/MM3 (1.8-7.7); BASOPHIL # 0.1 TH/MM3 (0-0.2); BASOPHIL % 0.6 % (0.0-2.0); EOSINOPHIL # 0.4 TH/MM3 (0-0.4); EOSINOPHIL % 3.1 % (0.0-4.0); HEMATOCRIT 44.5 % (39.0-51.0); HEMO FLAGS DIFF FINAL; LYMPH % 26.6 % (9.0-44.0); MEAN CORPUSCULAR HEMOGLOBIN 28.4 PG (27.0-34.0); MEAN CORPUSCULAR HGB CONC 34.1 % (32.0-36.0); MONO % 7.5 % (0.0-8.0); NEUT % 62.2 % (16.0-70.0); PLATELET COUNT 278 TH/MM3 (150-450); RED BLOOD COUNT 5.36 MIL/MM3 (4.50-5.90); RED CELL DISTRIBUTION WIDTH 14.3 % (11.6-17.2); WHITE BLOOD COUNT 11.4 TH/MM3 (4.0-11.0)
[2017-06-08 22:22] LABS: BLOOD, URINE NEG (NEG); COMMENT (UR) CULT NOT INDICATED; CULTURE IF INDICATED CULT NOT INDICATED; GLUCOSE,URINE NEG (NEG); KETONE, URINE TRACE mg/dL (NEG); MUCUS URINE FEW /lpf (OCC); NITRITE,URINE NEG (NEG); URINE COLOR YELLOW (YELLW/STRAW)
[2017-06-08 22:38] LABS: BICARBONATE 25.3 MEQ/L (21.0-32.0); POTASSIUM 4.4 MEQ/L (3.5-5.1)
== END 2017-06-09 00:43 | disposition home or self-care (01) ==
LOC: NEPC 20:31
DX: R10.9 Unspecified abdominal pain (principal); R31.9 Hematuria, unspecified; F17.200 Nicotine dependence, unspecified, uncomplicated; Z88.5 Allergy status to narcotic agent; Z88.8 Allergy status to other drugs, medicaments and biological substances
CPT/HCPCS: 80048; 81001; 85025; 99283; J7030

== ENCOUNTER → 2017-06-25 | Outpatient (CLI) | payer MEDICAID ==
[2017-06-25 12:28] LABS: AUTOMATED NEUTROPHIL # 4.3 TH/MM3 (1.8-7.7); BASOPHIL % 0.6 % (0.0-2.0); EOSINOPHIL # 0.2 TH/MM3 (0-0.4); EOSINOPHIL % 3.3 % (0.0-4.0); HEMATOCRIT 41.1 % (39.0-51.0); HEMO FLAGS DIFF FINAL; LYMPH % 20.3 % (9.0-44.0); LYMPHOCYTE # 1.3 TH/MM3 (1.0-4.8); MEAN CELL VOLUME 82.1 FL (80.0-100.0); MEAN CORPUSCULAR HEMOGLOBIN 27.6 PG (27.0-34.0); MEAN CORPUSCULAR HGB CONC 33.7 % (32.0-36.0); MONO % 8.9 % (0.0-8.0); NEUT % 66.9 % (16.0-70.0); PLATELET COUNT 214 TH/MM3 (150-450); RED BLOOD COUNT 5.01 MIL/MM3 (4.50-5.90); RED CELL DISTRIBUTION WIDTH 14.5 % (11.6-17.2); WHITE BLOOD COUNT 6.4 TH/MM3 (4.0-11.0)
[2017-06-25 12:40] LABS: APTT (PATIENT) 28.9 SEC (24.3-30.1); INTERNATIONAL NORMALIZED RATIO 0.9 RATIO
[2017-06-25 12:58] LABS: ANION GAP 7 MEQ/L (5-15); AST (GOT) 19 U/L (15-37); BICARBONATE 24.8 MEQ/L (21.0-32.0); BLOOD UREA NITROGEN 11 MG/DL (7-18); CHLORIDE 103 MEQ/L (98-107); GLOMERULAR FILTRATION RATE 93 ML/MIN (>89); GLUCOSE,FASTING 95 MG/DL (74-99); SODIUM (NA) 135 MEQ/L (136-145)
[2017-06-25 13:00] LABS: ALT (GPT) 50 U/L (12-78)
[2017-06-25 13:02] LABS: ALKALINE PHOSPHATASE 179 U/L (45-117); TOTAL BILIRUBIN ADULT 0.4 MG/DL (0.2-1.0)
== END ==
LOC: CPRE 10:56
PROVIDERS: ATTEND Urology
DX: Z01.812 Encounter for preprocedural laboratory examination (principal); N28.89 Other specified disorders of kidney and ureter
CPT/HCPCS: 36415; 80053; 85025; 85610; 85730

== ENCOUNTER 2017-07-02 06:09 | Inpatient (IN) | payer MEDICAID ==
[~2017-07-02] VITALS: Ht 182.9 cm; Wt 91.3 kg
[2017-07-02] MEDS ORDERED: SODIUM CHLORID 0.9% 500 ML IV PRN (06:30)
[2017-07-02] MEDS ORDERED: CHLORHEXIDINE GLUCONATE 2 % 1 PACK (2 CLOTHS) TOPICAL PRN (06:30)
[2017-07-02] MEDS ORDERED: LACTATED RINGER'S 1000 ML IV PRN (06:30)
[2017-07-02] MEDS ORDERED: ceFAZolin 1,000 MG/NS 100 ML IV SCH ×2 (06:30)
[2017-07-02] MEDS ORDERED: METOPROLOL TARTRATE 25 MG TAB PO PRN (06:30)
[2017-07-02] MEDS ORDERED: POVIDONE IODINE 5% (ANTISEPSIS KIT) 4 APPLICATIONS EACH NARE PRN (06:30)
[2017-07-02] MEDS ORDERED: MANNITOL INJ 0 ML ONE (06:50)
[2017-07-02] MEDS ORDERED: BACITRACIN TOP OINT 15 GM TUBE ONE (06:50)
[2017-07-02 07:02] VITALS: BP 114/69; PULSE 73; RESP 18; TEMP 99.2; O2SAT 97
[2017-07-02] MEDS ORDERED: BUPIVACAINE HCL PF 0.25% 30 ML VIAL ONE ×2 (07:51→08:22)
[2017-07-02 08:13] LABS: BASOPHIL # 0.1 TH/MM3 (0-0.2); BASOPHIL % 0.7 % (0.0-2.0); EOSINOPHIL # 0.2 TH/MM3 (0-0.4); EOSINOPHIL % 1.9 % (0.0-4.0); HEMATOCRIT 40.3 % (39.0-51.0); HEMO FLAGS DIFF FINAL; LYMPH % 13.3 % (9.0-44.0); LYMPHOCYTE # 1.4 TH/MM3 (1.0-4.8); MEAN CELL VOLUME 83.9 FL (80.0-100.0); MEAN CORPUSCULAR HEMOGLOBIN 27.9 PG (27.0-34.0); MEAN CORPUSCULAR HGB CONC 33.3 % (32.0-36.0); NEUT % 76.1 % (16.0-70.0); PLATELET COUNT 266 TH/MM3 (150-450); RED CELL DISTRIBUTION WIDTH 14.8 % (11.6-17.2); WHITE BLOOD COUNT 10.5 TH/MM3 (4.0-11.0)
== END 2017-07-02 08:52 | disposition home or self-care (01) | DRG 700 ==
LOC: HSDI 06:09
PROVIDERS: ADMIT Urology; ATTEND Urology
DX: N28.89 Other specified disorders of kidney and ureter (principal); Z53.8 Procedure and treatment not carried out for other reasons
CPT/HCPCS: 80307; 85025; 86850; 86900; 86901; 86920; 99211; G0463; J0690; J2150; J7120

== ENCOUNTER → 2017-08-16 | Outpatient (CLI) | payer MEDICAID ==
[~2017-08-16] MED LIST changes: -LEVO500T8 PO; +OMEP20TA93 PO; +ZOFR8TAB PO
[2017-08-16 12:02] LABS: AUTOMATED NEUTROPHIL # 10.8 TH/MM3 (1.8-7.7); BASOPHIL % 0.3 % (0.0-2.0); EOSINOPHIL # 0.1 TH/MM3 (0-0.4); EOSINOPHIL % 0.9 % (0.0-4.0); HEMATOCRIT 43.1 % (39.0-51.0); LYMPH % 4.2 % (9.0-44.0); LYMPHOCYTE # 0.5 TH/MM3 (1.0-4.8); MEAN CELL VOLUME 84.8 FL (80.0-100.0); MEAN CORPUSCULAR HEMOGLOBIN 29.5 PG (27.0-34.0); MEAN CORPUSCULAR HGB CONC 34.8 % (32.0-36.0); MEAN PLATELET VOLUME 7.9 FL (7.0-11.0); MONO % 5.8 % (0.0-8.0); MONOCYTE # 0.7 TH/MM3 (0-0.9); NEUT % 88.8 % (16.0-70.0); PLATELET COUNT 226 TH/MM3 (150-450); RED BLOOD COUNT 5.09 MIL/MM3 (4.50-5.90); RED CELL DISTRIBUTION WIDTH 13.8 % (11.6-17.2); WHITE BLOOD COUNT 12.2 TH/MM3 (4.0-11.0)
[2017-08-16 12:09] LABS: PROTHROMBIN TIME - PATIENT 9.8 SEC (9.8-11.6)
[2017-08-16 12:29] LABS: AST (GOT) 14 U/L (15-37); BICARBONATE 26.8 MEQ/L (21.0-32.0); BLOOD UREA NITROGEN 9 MG/DL (7-18); CALCIUM 9.1 MG/DL (8.5-10.1); CHLORIDE 100 MEQ/L (98-107); CREATININE 1.14 MG/DL (0.60-1.30); GLOMERULAR FILTRATION RATE 74 ML/MIN (>89); GLUCOSE,FASTING 118 MG/DL (74-99); SODIUM (NA) 137 MEQ/L (136-145)
[2017-08-16 12:30] LABS: ALT (GPT) 25 U/L (12-78)
[2017-08-16 12:32] LABS: ALKALINE PHOSPHATASE 115 U/L (45-117); TOTAL BILIRUBIN ADULT 0.3 MG/DL (0.2-1.0); TOTAL PROTEIN 7.4 GM/DL (6.4-8.2)
== END ==
LOC: CPRE 10:35
PROVIDERS: ATTEND Urology
DX: Z01.812 Encounter for preprocedural laboratory examination (principal); N28.89 Other specified disorders of kidney and ureter
CPT/HCPCS: 36415; 80053; 85025; 85610; 85730

== ENCOUNTER 2017-08-20 06:03 | Inpatient (IN) | payer MEDICAID ==
[~2017-08-20] VITALS: Ht 182.9 cm; Wt 94.8 kg
[2017-08-20] MEDS ORDERED: LACTATED RINGER'S 1000 ML IV PRN (06:30)
[2017-08-20] MEDS ORDERED: METOPROLOL TARTRATE 25 MG TAB PO PRN (06:30)
[2017-08-20] MEDS ORDERED: SODIUM CHLORID 0.9% 500 ML IV PRN (06:30)
[2017-08-20] MEDS ORDERED: ceFAZolin 1,000 MG/NS 100 ML IV SCH ×2 (06:30)
[2017-08-20] MEDS ORDERED: CHLORHEXIDINE GLUCONATE 2 % 1 PACK (2 CLOTHS) TOPICAL PRN (06:30)
[2017-08-20] MEDS ORDERED: POVIDONE IODINE 5% (ANTISEPSIS KIT) 4 APPLICATIONS EACH NARE PRN (06:30)
[2017-08-20] MEDS ORDERED: BACITRACIN TOP OINT 15 GM TUBE ONE (07:28)
[2017-08-20] MEDS ORDERED: MANNITOL INJ 50 ML ONE ×3 (07:29→10:18)
[2017-08-20] MEDS ORDERED: ACETAMINOPHEN 1000 MG/100 ML 100 ML IV ONE (07:58)
[2017-08-20] MEDS ORDERED: diphenhydrAMINE HCL 50 MG/ML VIAL IV PUSH PRN ×3 (11:45→14:15)
[2017-08-20] MEDS: PANTOPRAZOLE SODIUM 40 MG VIAL IV PUSH SCH (11:45)
[2017-08-20] MEDS ORDERED: ONDANSETRON HCL 4 MG/2 ML VIAL IV PUSH PRN (11:45)
[2017-08-20] MEDS ORDERED: ACETAMINOPHEN 650 MG/20.3 ML UDC PO PRN (11:45)
[2017-08-20] MEDS ORDERED: LORazepam 2 MG/ML VIAL IV PUSH PRN (11:45)
--- NOTE | 2017-08-20 11:53 | PD.OP ---
Operative Report Date of Surgery: Aug 20, 2017 Preoperative Diagnosis: 2 cm upper pole right renal mass Postoperative Diagnosis: Same Procedure: Right partial nephrectomy Anesthesia: JACQUELINE Surgeon: Enrique Aldridge Supervisor Fiber Locking(s): Dr. Eduardo Vee Resident Surgeon: None Operation and Findings: 36-year-old male who presented to the office with findings on a CT scan demonstrating a 2 cm right upper pole renal mass concerning for renal cell carcinoma. Patient was advised for observation at this point in time but desired to have the tumor removed. Risk and benefits were discussed preoperatively and he was willing to proceed. Patient is brought to the operating room and identified by myself as Feroz Deshpande. He was placed in the lateral recumbent position with the right side up and onto the beebe bag. All areas were appropriately padded. A 16 Gu[place] Bains was inserted. He was then prepped and draped in usual sterile fashion. A 15 blade was then used to make the opening session extending from the tip of the 11th rib to the area of the mid abdomen. Camper's and Isi's Fascia were then cut as well as the external and internal oblique muscles and portion of the rectus fascia. The peritoneum was initially entered inadvertently and this was closed with a running 2-0 chromic suture. The Bookwalter retractor was then placed. Gerota' s fascia was identified and using my index finger it was entered. The kidney was then identified and the surrounding fat was cleaned away from the kidney. The renal vessels were then identified. There were 2 renal arteries and one large renal vein. 25 mg of mannitol was then given and clamp time began at 10: 30 a.m. The renal arteries and veins were clamped with bulldog clamps. The tumor was located posteriorly on the upper pole and it was initially scored with the Bovie cautery. Using a 15 blade and a long handle the tumor was then resected. It was sent to pathology. The Bovie was then used to cauterize the bed where the renal tumor was located. 4-0 chromic sutures were then used to provide hemostasis to the area of the renal bed. Fibrillar was then placed into the renal bed and then the capsule was clamped shelled and closed with interrupted 3-0 chromic sutures. Hemostasis was maintained and blood loss at this point was 200 cc. The clamps were removed at 10:52 AM. Clamp time was 22 minutes. Hemostasis was checked for and obtained using the Bovie cautery of any small areas of bleeding. Surgicel was placed over the area of the resected tumor. A 19 Gu[place] Chi drain was then placed with a 2-0 silk suture used to anchor the drain. The fascia then closed with a #1 looped PDS. A double closure was performed. Skin lyssa were then used to close the skin. The patient was then awoken and extubated treasure currently stable condition. He tolerated the procedure well. Blood loss was 200 cc. Enrique Aldridge DO Aug 20, 2017 11:53
[2017-08-20] MEDS ORDERED: NORMOSOL R INJ 2,000 ML IV ONE (12:00)
[2017-08-20] MEDS ORDERED: NEOSTIGMINE 5 MG/5 ML SYRINGE IV PUSH ONE (12:00)
[2017-08-20] MEDS ORDERED: ONDANSETRON HCL 4 MG/2 ML VIAL IV ONE (12:00)
[2017-08-20] MEDS ORDERED: PROPOFOL 200 MG/20 ML AMP IV ONE (12:00)
[2017-08-20] MEDS ORDERED: LIDOCAINE HCL 1% PF 5 ML SYRINGE OTHER ONE (12:00)
[2017-08-20] MEDS ORDERED: ROCURONIUM INJ 50 MG/5 ML SYRINGE IV PUSH ONE (12:00)
[2017-08-20] MEDS ORDERED: GLYCOPYRROLATE 1 MG/5 ML SYRINGE IV PUSH ONE (12:00)
[2017-08-20] MEDS ORDERED: MIDAZOLAM HCL 2 MG/2 ML VIAL ONE (12:11)
[2017-08-20] MEDS ORDERED: MORPHINE SULFATE 4 MG/ML INJ ONE (12:12)
[2017-08-20] MEDS ORDERED: HYDROmorphone HCL PF 2 MG/ML VIAL ONE (12:30)
[2017-08-20] MEDS ORDERED: DO NOT ADM ANY ANTICOAGULANT DRUGS PRN (12:45)
[2017-08-20] MEDS ORDERED: [UNRECOGNIZED DRUG - REMARK] PRN (12:45)
[2017-08-20] MEDS ORDERED: NALOXONE HCL 0.4 MG/ML AMP IV PUSH PRN ×2 (12:45→14:15)
[2017-08-20] MEDS ORDERED: BUPIVACAINE/EPINEPHRINE 0.5% 50 ML VIAL ONE (12:46)
--- NOTE | 2017-08-20 12:53 | RADRPT ---
EXAM DATE/TIME: 08/20/2017 12:26 [place] COMPARISON: CHEST SINGLE AP, June 13, 2014, 19:14. INDICATIONS : Central line placement. MEDICAL HISTORY : Pancreatitis. SURGICAL HISTORY : None. ENCOUNTER: Initial ACUITY: 1 day PAIN SCORE: Non-responsive. LOCATION: Bilateral chest FINDINGS: Status post placement of a right-sided central line. The central line appears to be in good position. There is no pneumothorax. The lungs are grossly clear. Heart size is within normal limits. There are no pleural effusions. The bony structures are grossly intact. CONCLUSION: Good position of the right-sided central line. No pneumothorax. Smooth De Anda MD on August 20, 2017 at 12:50 Board Certified Radiologist. This report was verified electronically.
[2017-08-20 13:29] LABS: HEMATOCRIT 38.1 % (39.0-51.0); MEAN CELL VOLUME 84.2 FL (80.0-100.0); MEAN CORPUSCULAR HEMOGLOBIN 28.7 PG (27.0-34.0); MEAN PLATELET VOLUME 7.8 FL (7.0-11.0); PLATELET COUNT 206 TH/MM3 (150-450); RED BLOOD COUNT 4.53 MIL/MM3 (4.50-5.90); RED CELL DISTRIBUTION WIDTH 13.5 % (11.6-17.2); WHITE BLOOD COUNT 17.5 TH/MM3 (4.0-11.0)
[2017-08-20] MEDS: POTASSIUM CHLORIDE INJ 20 MEQ in LACTATED RINGER'S 1000 ML INJ 1,000 ML IV SCH (13:30)
[2017-08-20 13:56] LABS: BICARBONATE 29.4 MEQ/L (21.0-32.0); CALCIUM 8.5 MG/DL (8.5-10.1); CREATININE 1.21 MG/DL (0.60-1.30)
[2017-08-20] MEDS ORDERED: PCA - TOTAL MG DILAUDID DELIVERED PER SHIFT IV SCH (14:00)
[2017-08-20] MEDS ORDERED: SODIUM CHLORIDE 0.9% IV SCH (14:00)
[2017-08-20] MEDS ORDERED: HYDROMORPHONE IV SCH (14:00)
[2017-08-20] MEDS: ceFAZolin 2 GM PREMIX 50 ML IV SCH ×2 (15:01→23:00)
[2017-08-20] MEDS: HYDROmorphone HCL PCA 6 MG/30 ML IV SCH ×2 (15:23→20:54)
[2017-08-20 16:00] VITALS: BP 122/61; PULSE 81; RESP 20; TEMP 98.4; O2SAT 95
[2017-08-20 16:05] VITALS: O2SAT 98
[2017-08-20 20:00] VITALS: BP 119/65; PULSE 77; RESP 18; TEMP 97.5; O2SAT 97
[2017-08-20] MEDS: PCA - TOTAL MG DILAUDID DELIVERED PER SHIFT SCH (22:00)
[2017-08-21] VITALS (8 sets, daily range): BP systolic 123–152; BP diastolic 64–84; PULSE 83–90; RESP 16–20; TEMP 97.5–99.4; O2SAT 92–97
[2017-08-21] MEDS: HYDROmorphone HCL PCA 6 MG/30 ML IV SCH ×6 (00:39→21:11)
[2017-08-21] MEDS: POTASSIUM CHLORIDE INJ 20 MEQ in LACTATED RINGER'S 1000 ML INJ 1,000 ML IV SCH ×4 (00:43→21:59)
[2017-08-21] MEDS: PCA - TOTAL MG DILAUDID DELIVERED PER SHIFT SCH ×3 (05:40→22:00)
[2017-08-21] MEDS: ceFAZolin 2 GM PREMIX 50 ML IV SCH (06:32)
[2017-08-21 07:00] LABS: HEMATOCRIT 37.8 % (39.0-51.0); HEMOGLOBIN 12.8 GM/DL (13.0-17.0); MEAN CELL VOLUME 83.3 FL (80.0-100.0); MEAN CORPUSCULAR HEMOGLOBIN 28.1 PG (27.0-34.0); MEAN CORPUSCULAR HGB CONC 33.7 % (32.0-36.0); MEAN PLATELET VOLUME 7.7 FL (7.0-11.0); PLATELET COUNT 189 TH/MM3 (150-450); RED BLOOD COUNT 4.54 MIL/MM3 (4.50-5.90); RED CELL DISTRIBUTION WIDTH 13.4 % (11.6-17.2); WHITE BLOOD COUNT 13.1 TH/MM3 (4.0-11.0)
[2017-08-21 07:30] LABS: BICARBONATE 31.7 MEQ/L (21.0-32.0); CALCIUM 8.2 MG/DL (8.5-10.1); CREATININE 1.18 MG/DL (0.60-1.30)
--- NOTE | 2017-08-21 08:41 | HHI.PR ---
Subjective Patient symptoms today Pt seen and examined. C/O incisional pain. Objective Vital Signs Vital Signs Date Time Temp Pulse Resp B/P (MAP) Pulse Ox O2 Delivery O2 Flow Rate FiO2 08/21/17 07:07 20 08/21/17 05:40 20 08/21/17 04:15 20 08/21/17 04:00 99.4 87 20 123/64 (83) 92 08/21/17 03:30 20 08/21/17 00:00 98.8 90 18 136/74 (94) 97 08/20/17 22:00 20 08/20/17 20:00 97.5 77 18 119/65 (83) 97 08/20/17 16:05 98 Nasal Cannula 2.00 08/20/17 16:00 98.4 81 20 122/61 (81) 95 08/20/17 15:23 17 08/20/17 14:15 98.7 78 16 133/68 (89) 99 Nasal Cannula 3 08/20/17 14:00 78 16 124/69 (87) 99 Nasal Cannula 3 08/20/17 13:45 77 16 129/62 (84) 100 Nasal Cannula 3 08/20/17 13:30 81 17 129/66 (87) 100 Nasal Cannula 3 08/20/17 13:15 81 17 134/67 (89) 98 Nasal Cannula 3 08/20/17 13:00 83 17 132/65 (87) 98 Nasal Cannula 3 08/20/17 12:45 82 17 138/70 (92) 98 Nasal Cannula 3 08/20/17 12:30 79 17 125/69 (87) 98 Nasal Cannula 3 08/20/17 12:15 74 17 128/59 (82) 98 Nasal Cannula 3 08/20/17 11:56 98.5 78 17 140/66 (90) 98 Nasal Cannula 3 Intake & Output 08/21/17 08/21/17 07:00 19:00 Intake Total 1085.3 ml Output Total 2580 ml Balance -1494.7 ml Intake IV Total 1085.3 ml Output Urine Total 2550 ml Drainage Total 30 ml Result Diagram: 08/21/17 0605 08/21/17 0635 Objective Remarks Abd:soft,incisional tenderness ANGELA: old blood Bains with clear urine. Medications and IVs Current Medications Medications (Trade) Dose Ordered Sig/Dany Route Start Time Stop Time Status Last Admin (Lopressor) 25 mg COMPOSITE LAMINATOR PRN PO 08/20/17 06:30 08/23/17 06:29 (Betadine 5% Antisepsis Kit) 1 applic COMPOSITE LAMINATOR PRN EACH NARE 08/20/17 06:30 08/23/17 06:29 (Chlorhexidine 2% Cloth) 3 pack COMPOSITE LAMINATOR PRN TOPICAL 08/20/17 06:30 08/23/17 06:29 Potassium Chloride 20 meq/ Lactated Ringer's 1,010 ml @ 100 mls/hr Q10H6M IV 08/20/17 11:45 08/21/17 00:43 (Protonix Inj) 40 mg DAILY IV PUSH 08/20/17 11:45 (Zofran Inj) 4 mg Q6HR PRN IV PUSH 08/20/17 11:45 (Tylenol 650 Mg/ 20 ml Liq) 650 mg Q6H PRN PO 08/20/17 11:45 (Ativan Inj) 1 mg Q4H PRN IV PUSH 08/20/17 11:45 Miscellaneous Information WHILE ON SWITCH OPERATORS SUPERVISOR, NO OT... UNSCH PRN .XX 08/20/17 12:45 Miscellaneous Information ALL NURSING DEPARTME... UNSCH PRN .XX 08/20/17 12:45 08/21/17 12:44 (Dilaudid SWITCH OPERATORS SUPERVISOR Inj) 6 mg UNSCH IV 08/20/17 14:15 08/21/17 07:07 SWITCH OPERATORS SUPERVISOR Dosage Infused (Pha) 1 Q8HR .XX 08/20/17 22:00 08/21/17 05:40 (Narcan Inj) 0.4 mg UNSCH PRN IV PUSH 08/20/17 14:15 (Benadryl Inj) 25 mg Q6H PRN IV PUSH 08/20/17 14:15 Assessment and Plan Assessment and Plan Stable s/p Right PN OOB to chair Clear liquid diet Enrique Aldridge DO Aug 21, 2017 08:41
[2017-08-21] MEDS ORDERED: MORPHINE SULFATE 2 MG/ML INJ IV PUSH PRN (11:00)
[2017-08-21] MEDS: PANTOPRAZOLE SODIUM 40 MG VIAL IV PUSH SCH (12:09)
[2017-08-22] VITALS: BP 120/65; PULSE 88; RESP 16; TEMP 97.6; O2SAT 94
[2017-08-22] MEDS: HYDROmorphone HCL PCA 6 MG/30 ML IV SCH ×6 (01:13→18:56)
[2017-08-22 04:00] VITALS: BP 120/71; PULSE 81; RESP 16; TEMP 97.8; O2SAT 94
[2017-08-22] MEDS: PCA - TOTAL MG DILAUDID DELIVERED PER SHIFT SCH ×3 (06:00→21:53)
[2017-08-22 08:00] VITALS: BP 114/70; PULSE 80; RESP 18; TEMP 98.7; O2SAT 95
[2017-08-22] MEDS: PANTOPRAZOLE SODIUM 40 MG VIAL IV PUSH SCH (08:19)
--- NOTE | 2017-08-22 11:23 | HHI.PR ---
Subjective Patient symptoms today Pt seen and examined. Feeling better. Pain controlled. Objective Vital Signs Vital Signs Date Time Temp Pulse Resp B/P (MAP) Pulse Ox O2 Delivery O2 Flow Rate FiO2 08/22/17 08:18 20 08/22/17 08:00 98.7 80 18 114/70 (85) 95 08/22/17 06:00 16 08/22/17 05:34 16 08/22/17 05:04 16 08/22/17 04:00 97.8 81 16 120/71 (87) 94 08/22/17 01:13 18 08/22/17 00:00 97.6 88 16 120/65 (83) 94 08/21/17 22:00 16 08/21/17 21:11 17 08/21/17 21:08 95 21 08/21/17 20:00 97.5 88 16 124/72 (89) 94 08/21/17 17:09 17 08/21/17 16:00 98.4 83 19 132/78 (96) 95 08/21/17 14:00 17 08/21/17 12:00 97.8 83 20 152/84 (106) 95 Intake & Output 08/22/17 08/22/17 07:00 19:00 Intake Total 877.0 ml Output Total 1860 ml Balance -983.0 ml Intake Oral 450 ml IV Total 427.0 ml Output Urine Total 1850 ml Drainage Total 10 ml # Bowel Movements 0 Result Diagram: 08/21/17 0605 08/21/17 0635 Objective Remarks Abd:soft,incisional tenderness ANGELA: old blood Macias with clear urine. 08/22 Abd:soft,nt,nd Macias: urine clear Wound: clean and dry Ext: neg C/C/E Medications and IVs Current Medications Medications (Trade) Dose Ordered Sig/Dany Route Start Time Stop Time Status Last Admin (Lopressor) 25 mg PATENT LEGAL ASSISTANT PRN PO 08/20/17 06:30 08/23/17 06:29 (Betadine 5% Antisepsis Kit) 1 applic PATENT LEGAL ASSISTANT PRN EACH NARE 08/20/17 06:30 08/23/17 06:29 (Chlorhexidine 2% Cloth) 3 pack PATENT LEGAL ASSISTANT PRN TOPICAL 08/20/17 06:30 08/23/17 06:29 Potassium Chloride 20 meq/ Lactated Ringer's 1,010 ml @ 100 mls/hr Q10H6M IV 08/20/17 11:45 08/21/17 21:59 (Protonix Inj) 40 mg DAILY IV PUSH 08/20/17 11:45 08/22/17 08:19 (Zofran Inj) 4 mg Q6HR PRN IV PUSH 08/20/17 11:45 (Tylenol 650 Mg/ 20 ml Liq) 650 mg Q6H PRN PO 08/20/17 11:45 (Ativan Inj) 1 mg Q4H PRN IV PUSH 08/20/17 11:45 Miscellaneous Information WHILE ON HAND SEWER SHOES, NO OT... UNSCH PRN .XX 08/20/17 12:45 (Dilaudid HAND SEWER SHOES Inj) 6 mg UNSCH IV 08/20/17 14:15 08/22/17 08:18 HAND SEWER SHOES Dosage Infused (Pha) 1 Q8HR .XX 08/20/17 22:00 08/22/17 06:00 (Narcan Inj) 0.4 mg UNSCH PRN IV PUSH 08/20/17 14:15 (Benadryl Inj) 25 mg Q6H PRN IV PUSH 08/20/17 14:15 (Morphine Inj) 2 mg Q3H PRN IV PUSH 08/21/17 11:00 08/21/17 14:13 Assessment and Plan Assessment and Plan Stable s/p Right PN OOB to chair Clear liquid diet 08/22 Stable s/p Right PN POD #2 OOB Continue clear liquids D/C macias catheter Enrique Aldridge DO Aug 22, 2017 11:23
[2017-08-22 12:00] VITALS: BP 132/82; PULSE 78; RESP 18; TEMP 97.8; O2SAT 96
[2017-08-22] MEDS: POTASSIUM CHLORIDE INJ 20 MEQ in LACTATED RINGER'S 1000 ML INJ 1,000 ML IV SCH ×2 (12:08→21:53)
[2017-08-22 16:00] VITALS: BP 123/76; PULSE 75; RESP 18; TEMP 96.9; O2SAT 97
[2017-08-22 20:00] VITALS: BP 120/72; PULSE 82; RESP 18; TEMP 99.2; O2SAT 93
[2017-08-23] VITALS (8 sets, daily range): BP systolic 113–123; BP diastolic 68–79; PULSE 72–79; RESP 16–18; TEMP 96.8–99; O2SAT 93–96
[2017-08-23] MEDS: HYDROmorphone HCL PCA 6 MG/30 ML IV SCH ×2 (00:09→04:16)
[2017-08-23] MEDS: PCA - TOTAL MG DILAUDID DELIVERED PER SHIFT SCH (04:16)
[2017-08-23] MEDS: POTASSIUM CHLORIDE INJ 20 MEQ in LACTATED RINGER'S 1000 ML INJ 1,000 ML IV SCH ×2 (07:56→18:16)
[2017-08-23] MEDS: oxyCODONE/ACETAMINOPHEN 10 MG/325 MG TAB PO PRN ×4 (08:37→20:39)
[2017-08-23] MEDS: PANTOPRAZOLE SODIUM 40 MG VIAL IV PUSH SCH (08:41)
--- NOTE | 2017-08-23 08:42 | HHI.PR ---
Subjective Patient symptoms today Pt seen and examined. Feeling better. Objective Vital Signs Vital Signs Date Time Temp Pulse Resp B/P (MAP) Pulse Ox O2 Delivery O2 Flow Rate FiO2 08/23/17 04:16 18 08/23/17 04:16 18 08/23/17 04:00 98.6 74 18 120/73 (89) 94 08/23/17 00:09 18 08/23/17 00:00 99.0 79 18 122/71 (88) 93 08/22/17 21:53 18 08/22/17 20:00 99.2 82 18 120/72 (88) 93 08/22/17 18:56 18 08/22/17 18:55 18 08/22/17 16:00 96.9 75 18 123/76 (92) 97 08/22/17 15:40 18 08/22/17 12:05 18 08/22/17 12:00 97.8 78 18 132/82 (99) 96 Intake & Output 08/23/17 08/23/17 07:00 19:00 Intake Total 1730 ml Output Total 2575 ml Balance -845 ml Intake Oral 720 ml IV Total 1010 ml Output Urine Total 2550 ml Drainage Total 25 ml # Bowel Movements 0 Result Diagram: 08/21/17 0605 08/21/17 0635 Objective Remarks Abd:soft,incisional tenderness ANGELA: old blood Macias with clear urine. 08/22 Abd:soft,nt,nd Macias: urine clear Wound: clean and dry Ext: neg C/C/E 08/23 Abd:soft,nt,nd Voiding well. 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 UNSCH PRN .XX 08/20/17 12:45 (Morphine Inj) 2 mg Q3H PRN IV PUSH 08/21/17 11:00 08/21/17 14:13 (Percocet 10-325 Mg) 1 tab Q4H PRN PO 08/23/17 07:30 (Dilaudid Pf Inj) 1 mg Q4H PRN IV PUSH 08/23/17 07:30 Assessment and Plan Assessment and Plan Stable s/p Right PN OOB to chair Clear liquid diet 08/22 Stable s/p Right PN POD #2 OOB Continue clear liquids D/C macias catheter 08/23 Stable s/p Right PN POD#3 OOB Regular diet D/C Enrique Davis DO Aug 23, 2017 08:42
[2017-08-23] MEDS: HYDROmorphone HCL PF 2 MG/ML VIAL IV PUSH PRN ×4 (09:56→22:06)
[2017-08-24] VITALS: BP 123/71; PULSE 74; RESP 16; TEMP 97.8; O2SAT 94
[2017-08-24] MEDS: oxyCODONE/ACETAMINOPHEN 10 MG/325 MG TAB PO PRN ×4 (01:06→13:38)
[2017-08-24] MEDS: HYDROmorphone HCL PF 2 MG/ML VIAL IV PUSH PRN ×3 (02:20→10:43)
[2017-08-24] MEDS: POTASSIUM CHLORIDE INJ 20 MEQ in LACTATED RINGER'S 1000 ML INJ 1,000 ML IV SCH (06:39)
[2017-08-24 08:00] VITALS: BP 126/78; PULSE 64; RESP 20; TEMP 98.4; O2SAT 97
[2017-08-24] MEDS: PANTOPRAZOLE SODIUM 40 MG VIAL IV PUSH SCH (08:44)
[2017-08-24 12:00] VITALS: BP 121/66; PULSE 58; RESP 19; TEMP 96.9; O2SAT 98
--- NOTE | 2017-08-24 12:51 | HHI.PR ---
Subjective Patient symptoms today Pt feels well. Objective Vital Signs Vital Signs Date Time Temp Pulse Resp B/P (MAP) Pulse Ox O2 Delivery O2 Flow Rate FiO2 08/24/17 11:13 18 08/24/17 10:43 18 08/24/17 08:00 98.4 64 20 126/78 (94) 97 08/24/17 00:00 97.8 74 16 123/71 (88) 94 08/23/17 20:00 96.8 75 16 123/68 (86) 95 08/23/17 17:42 96 21 08/23/17 16:00 97.7 77 18 113/73 (86) 96 Intake & Output 08/24/17 08/24/17 07:00 19:00 Intake Total 240 ml Output Total 650 ml Balance -650 ml 240 ml Intake Oral 240 ml Output Urine Total 650 ml # Voids 2 Result Diagram: 08/21/17 0608/21/17 0635 Objective Remarks Abd:soft,incisional tenderness ANGELA: old blood Macias with clear urine. 08/22 Abd:soft,nt,nd Macias: urine clear Wound: clean and dry Ext: neg C/C/E 08/23 Abd:soft,nt,nd Voiding well. ANGELA with minimal drainage Wound: clean and dry Ext: neg C/C/E 08/24 Abd:soft,nt,nd Voiding well. 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 UNSCH PRN .XX 08/20/17 12:45 (Morphine Inj) 2 mg Q3H PRN IV PUSH 08/21/17 11:00 08/21/17 14:13 (Percocet 10-325 Mg) 1 tab Q4H PRN PO 08/23/17 07:30 08/24/17 09:43 (Dilaudid Pf Inj) 1 mg Q4H PRN IV PUSH 08/23/17 07:30 08/24/17 10:43 Assessment and Plan Assessment and Plan Stable s/p Right PN OOB to chair Clear liquid diet 08/22 Stable s/p Right PN POD #2 OOB Continue clear liquids D/C macias catheter 08/23 Stable s/p Right PN POD#3 OOB Regular diet D/C ANGELA 08/24 Stable s/p Right PN D/C Home Enrique Aldridge DO Aug 24, 2017 12:51
[2017-08-24 13:25] VITALS: O2SAT 98
--- NOTE | 2017-08-28 13:08 | MD ---
cc: CINDY DAVE ADMISSION DATE: 08/20/2017 DISCHARGE DATE: 08/24/2017 Mr. Deshpande is a 36-year-old male who was found to have a renal cell carcinoma on his right kidney at the upper pole and underwent right partial nephrectomy on 08/20/2016. He went on to have an uneventful hospital course, was tolerating his regular diet, ambulating without difficulty and discharged on 08/24/2017. At the time of discharge he was given instructions concerning diet, exercise and medications and scheduled to follow up at the office in 1 week for staple removal. Cindy MORA/TLL /12:51 PM /12:58 PM
== END 2017-08-24 14:24 | disposition home or self-care (01) | DRG 658 ==
LOC: HSDI 06:03 → N07B 14:45
PROVIDERS: ADMIT Urology; ATTEND Urology
PROC: 0TB00ZZ Excision of Right Kidney, Open Approach (ICD-10-PCS; principal; 2017-08-20 08:19)
DX: C64.1 Malignant neoplasm of right kidney, except renal pelvis (principal); F17.210 Nicotine dependence, cigarettes, uncomplicated; K21.9 Gastro-esophageal reflux disease without esophagitis
CPT/HCPCS: 71045; 80048; 85027; 86850; 86900; 86901; 86920; 88307; 88329; 88331; 94150; C9113; J0131; J0690; J1170; J2150; J2250; J2270; J2405; J2710; J3010; J3480; J7120